=== PATIENT | male | born 2000 | race Caucasian/White ===

== ENCOUNTER 2020-11-19 07:35 | Emergency (ER) | payer OTHER ==
[2020-11-19] MEDS ORDERED: Tetracaine HCl/PF 0.5% 4 ML Bottle EYELF ONE (07:49)
[2020-11-19] MEDS ORDERED: Fluorescein 1 MG Ophth Strip EYELF ONE (07:49)
--- NOTE | 2020-11-19 07:49 | EDM.PDOC ---
ED HPI GENERAL MEDICAL PROBLEM - General Stated Complaint: INJURY TO LEFT EYE Time Seen by Provider: 11/19/20 07:49 Source of Information: Reports: Patient, RN, RN Notes Reviewed History Limitations: Reports: No Limitations - History of Present Illness INITIAL COMMENTS - FREE TEXT/NARRATIVE: Patient is a 20-year-old male who presents to ER with complaint of foreign body in the left eye. States he was on duty at 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 Patient states he has flushed his eye several times and still feels there is something under the left lid. Denies wearing contacts. Denies any blurred or double vision. Onset: Sudden Onset Date: 11/18/20 Left Eye Pain Score (Numeric/FACES): 4 - Related Data Allergies Allergy/AdvReac Type Severity Reaction Status Date / Time No Known Allergies Allergy Verified 11/19/20 08:08 Home Meds: Home Meds . [No Known Home Meds] 11/19/20 [History] ED ROS GENERAL - Review of Systems Review Of Systems: Comprehensive ROS is negative, except as noted in HPI. ED EXAM GENERAL W FULL EYE - Physical Exam Exam: See Below Exam Limited By: No Limitations General Appearance: Alert, WD/WN, No Apparent Distress Eye Exam: Right Eye: Normal Inspection, Left Eye: Conjunctival Injection, Corneal Abrasion, Foreign Body, Bilateral Eye: EOMI, PERRL (3 brisk) Visual Acuity (R) 20/: 20 Visual Acuity (L) 20/: 25 With Correction: No Eyelids: Left: Foreign Body (None noted), Lid Everted for Exam, Bilateral: Normal Appearance Conjunctiva & Sclera: Right: Normal Appearance, Left: Injected Cornea Exam: Left: Corneal Abrasion, Examined with Flourescein Extraocular Movements: Bilateral: Intact Pupils: Normal Accommodation Pupillary Size: Bilateral: 3 mm Pupillary Reaction: Bilateral: Brisk Ears: Normal External Exam, Hearing Grossly Normal Nose: Normal Inspection Throat/Mouth: Normal Inspection, Normal Lips, Normal Teeth, Normal Gums, Normal Oropharynx, Normal Voice, No Airway Compromise Head: Atraumatic, Normocephalic Neck: Normal Inspection, Supple, Non-Tender, Full Range of Motion Respiratory/Chest: No Respiratory Distress, Lungs Clear, Normal Breath Sounds, No Accessory Muscle Use, Chest Non-Tender Cardiovascular: Normal Peripheral Pulses, Regular Rate, Rhythm, No Edema, No Gallop, No JVD, No Murmur, No Rub GI/Abdominal: Normal Bowel Sounds, Soft, Non-Tender, No Organomegaly, No Distention, No Abnormal Bruit, No Mass (Male) Exam: Deferred Rectal (Males) Exam: Deferred Back Exam: Normal Inspection, Full Range of Motion, NT Extremities: Normal Inspection, Normal Range of Motion, Non-Tender, Normal Capillary Refill, No Pedal Edema Neurological: Alert, Oriented, Normal Cognition, Normal Gait, No Motor/Sensory Deficits Psychiatric: Normal Affect, Normal Mood Skin Exam: Warm, Dry, Intact, Normal Color, No Rash Lymphatic: No Adenopathy ED EYE w/ Add Procedure - Eye Procedure Alcaine Drops Administered: Yes Eye FB Removal: Other (none noted) Eye Irrigated w/ Saline (ccs): 60 Antibiotic Oinment/Drps Admin: Left Eye Course - Vital Signs Last Recorded V/S: Last Vital Signs Temp 97.7 F 11/19/20 07:57 Pulse 70 11/19/20 07:57 Resp 16 11/19/20 07:57 BP 115/56 L 11/19/20 07:57 Pulse Ox 98 11/19/20 07:57 - Orders/Labs/Meds Meds: Medications Discontinued Medications Generic Name Dose Route Start Last Admin Trade Name Saúl PRN Reason Stop Dose Admin Fluorescein Sodium 1 mg 11/19/20 07:49 11/19/20 07:55 Fluorescein 1 Mg Ophth Strip EYELF 11/19/20 07:50 1 mg ONETIME ONE Administration Tetracaine HCl 1 ml 11/19/20 07:49 11/19/20 07:55 Tetracaine Hcl/Pf 0.5% 4 Ml Bottle EYELF 11/19/20 07:50 1 ml ASDIRECTED ONE Administration Departure - Departure Time of Disposition: 08:05 Disposition: Home, Self-Care 01 Condition: Good Clinical Impression: Corneal abrasion, left Qualifiers: Encounter type: initial encounter Qualified Code(s): S05.02XA - Injury of conjunctiva and corneal abrasion without foreign body, left eye, initial encounter - Discharge Information *PRESCRIPTION DRUG MONITORING PROGRAM REVIEWED*: No *COPY OF PRESCRIPTION DRUG MONITORING REPORT IN PATIENT MARCO ANTONIO: No Instructions: Corneal Abrasion, [id number] Additional Instructions: Tobradex eye drops 1-2 drops every 2 hours for 2 days, then 1-2 drops every 4-6 hours for 2 days If no improvement by tomorrow morning follow up with an traffic control technician Do not wear contacts Sepsis Event Note (ED) - Focused Exam Vital Signs: Vital Signs Temp Pulse Resp BP Pulse Ox 11/19/20 07:57 97.7 F 70 16 115/56 L 98
== END 2020-11-19 08:10 | disposition home or self-care (01) ==
LOC: DL.ED 07:35
DX: S05.02XA Injury of conjunctiva and corneal abrasion without foreign body, left eye, initial encounter (principal); W22.8XXA Striking against or struck by other objects, initial encounter
CPT/HCPCS: 99283